=== PATIENT | female | born 1945 | race Caucasian/White ===

== ENCOUNTER → 2017-11-02 08:44 | Outpatient (CLI) | payer MEDICARE, OTHER, SELFPAY ==
[2017-11-02 09:16] LABS: Add Manual Diff / Slide Review NO; Basophils Percent Auto 0.6 % (0-2); Eosinophils Percent Auto 3.6 % (2-4); Hematocrit 33.4 % (36-46); Hemoglobin 11.4 g/dL (12.0-16.0); Lymphocytes Percent Auto 24.2 % (25-40); Mean Corpuscular Hemoglobin 36.5 PG (26-34); Mean Corpuscular Volume 107.4 fL (80-100); Monocytes Percent Auto 7.6 % (3-14); Neutrophils Absolute Auto 1300 /uL (3000-5900); Platelet Count 242 X10^3/uL (150-400); Red Blood Cell Count 3.11 X10^6/uL (4.0-5.2); Red Cell Distribution Width 14.4 % (11.6-14.8)
== END ==
PROVIDERS: Visit Provider Internal Medicine Medical Oncology
DX: C50.919 Malignant neoplasm of unspecified site of unspecified female breast (principal)
CPT/HCPCS: 36415; 85025

== ENCOUNTER → 2017-12-08 17:06 | Outpatient (CLI) | payer MEDICARE, OTHER, SELFPAY ==
[2017-12-08 17:37] LABS: Add Manual Diff / Slide Review SLIDE REVIEW; Basophils Percent Auto 0.6 % (0-2); Eosinophils Percent Auto 2.3 % (2-4); Hematocrit 30.7 % (36-46); Hemoglobin 10.6 g/dL (12.0-16.0); Lymphocytes Percent Auto 20.8 % (25-40); Mean Corpuscular HGB Conc 34.6 % (30-36); Mean Corpuscular Hemoglobin 37.3 PG (26-34); Mean Corpuscular Volume 107.8 fL (80-100); Monocytes Percent Auto 8.2 % (3-14); Neutrophils Absolute Auto 2100 /uL (3000-5900); Neutrophils Percent Auto 68.1 % (50-75); Platelet Count 207 X10^3/uL (150-400); Red Blood Cell Count 2.84 X10^6/uL (4.0-5.2); Red Cell Distribution Width 14.6 % (11.6-14.8)
== END ==
PROVIDERS: Family Provider Internal Medicine Hematology & Oncology; PCP Internal Medicine Medical Oncology; Visit Provider Internal Medicine Medical Oncology
DX: C50.919 Malignant neoplasm of unspecified site of unspecified female breast (principal)
CPT/HCPCS: 36415; 85025

== ENCOUNTER → 2017-12-22 11:38 | Outpatient (CLI) | payer MEDICARE, OTHER, SELFPAY ==
[2017-12-22 12:18] VITALS: BP 140/68; PULSE 73; RESP 16; TEMP 36.5; O2SAT 98
[2017-12-22 12:21] LABS: Basophils Percent Auto 0.4 % (0-2); Eosinophils Percent Auto 0.7 % (2-4); Hematocrit 31.9 % (36-46); Hemoglobin 10.9 g/dL (12.0-16.0); Lymphocytes Percent Auto 17.5 % (25-40); Mean Corpuscular Hemoglobin 36.5 PG (26-34); Mean Corpuscular Volume 107.4 fL (80-100); Monocytes Percent Auto 8.4 % (3-14); Neutrophils Absolute Auto 1700 /uL (3000-5900); Platelet Count 244 X10^3/uL (150-400); Red Blood Cell Count 2.97 X10^6/uL (4.0-5.2); Red Cell Distribution Width 14.7 % (11.6-14.8); White Blood Cell Count 2.4 X10^3/uL (4.5-11.0)
[2017-12-22 12:23] LABS: Add Manual Diff / Slide Review SLIDE REVIEW
[2017-12-22 12:26] LABS: Alanine Aminotransferase 18 IU/L (9-52); Albumin 4.3 g/dL (3.5-5.0); Albumin Globulin Ratio 1.4 (1.0-2.8); Alkaline Phosphatase 78 U/L (38-126); Aspartate Aminotransferase 29 IU/L (14-36); BUN Creatinine Ratio 22.9 (6-22); Bilirubin Total 0.3 mg/dL (0.2-1.3); Blood Urea Nitrogen 16 mg/dL (7-17); Calcium 8.9 mg/dL (8.4-10.2); Carbon Dioxide 32 mmol/L (22-32); Chloride 103 mmol/L (98-107); Estimated Glomerular Filt Rate > 60.0 mL/min (>60); Globulin 3.1 g/dL (1.7-4.1); Glucose 105 mg/dL (80-110); HEMOLYSIS < 15 (0-50); Potassium 4.1 mmol/L (3.4-5.1); Sodium 142 mmol/L (137-145); Total Protein 7.4 g/dL (6.3-8.2)
[2017-12-22] MEDS: FULVESTRANT 250 MG/5 ML SYR 500 MG IM (12:30)
[2017-12-22 12:55] LABS: Carcinoembryonic Antigen 6.2 ng/mL (0.1-3.0)
[2017-12-22 14:02] LABS: Macrocytosis 1+
--- NOTE | 2017-12-22 16:19 | PC.NURSE ---
Pt came today though not on the schedule for labs and faslodex she has a standing order for labs from Dr Aponte at [facility] Last visit with Dr Montgomery he determined that Faslodex seemed not to be working and to confer w/ [facility] re; a new med.Pt states she and Dr Aponte decided for many reasons to continue Faslodex at this time .Pt reported this though no info from [facility] was received .Called Dr Aponte's office/info faxed supporting continuing Faslodex at this time.Pt frustrated with delay .MICRO PALEONTOLOGIST ok'ed Faslodex for 2 months with oncology visit w/new provider in January .I explained to her that though she is being followed by Dr Aponte she requires periodic visits with oncologist here as well.Pt frustrated and angry with delay and I explained that it is best to make appt ahead of time knowing that orders are present,appts are made to insure a visit that will go quickly and smoothly.She came today expecting interventions to happen though proper info had not been received.She appears to understand.Told her Dr Aponte's office expected a f/u from her as well as scans had been done in October though not reviewed.These showed relatively stable disease in spite of increasing tumor markers per RN I spoke to.Dr Aponte also made recommendations regarding changing Prolia to X-geva>
[2017-12-23 17:01] LABS: Cancer Antigen 27.29 303 U/mL (< 38)
== END ==
PROVIDERS: Family Provider Internal Medicine Hematology & Oncology; PCP Internal Medicine Medical Oncology; Visit Provider Nurse Practitioner Gerontology
DX: Z51.11 Encounter for antineoplastic chemotherapy (principal); C50.919 Malignant neoplasm of unspecified site of unspecified female breast
CPT/HCPCS: 36415; 80053; 82378; 85025; 86300; 96402; J9395

== ENCOUNTER → 2018-01-05 13:34 | Outpatient (CLI) | payer MEDICARE, OTHER, SELFPAY ==
[2018-01-05 14:07] LABS: Add Manual Diff / Slide Review NO; Basophils Percent Auto 1.1 % (0-2); Eosinophils Percent Auto 2.5 % (2-4); Hematocrit 30.4 % (36-46); Hemoglobin 10.2 g/dL (12.0-16.0); Lymphocytes Percent Auto 24.4 % (25-40); Mean Corpuscular HGB Conc 33.6 % (30-36); Mean Corpuscular Hemoglobin 36.4 PG (26-34); Mean Corpuscular Volume 108.4 fL (80-100); Monocytes Percent Auto 8.8 % (3-14); Neutrophils Absolute Auto 1500 /uL (3000-5900); Neutrophils Percent Auto 63.2 % (50-75); Platelet Count 167 X10^3/uL (150-400); Red Blood Cell Count 2.81 X10^6/uL (4.0-5.2); Red Cell Distribution Width 15.1 % (11.6-14.8); White Blood Cell Count 2.4 X10^3/uL (4.5-11.0)
== END ==
PROVIDERS: PCP Internal Medicine Medical Oncology; Visit Provider Internal Medicine Medical Oncology
DX: C50.919 Malignant neoplasm of unspecified site of unspecified female breast (principal)
CPT/HCPCS: 36415; 85025

== ENCOUNTER → 2018-02-01 14:23 | Outpatient (CLI) | payer MEDICARE, OTHER, SELFPAY ==
[2018-02-01 15:18] LABS: Add Manual Diff / Slide Review NO; Eosinophils Percent Auto 1.4 % (2-4); Hematocrit 32.7 % (36-46); Lymphocytes Percent Auto 23.8 % (25-40); Mean Corpuscular HGB Conc 33.6 % (30-36); Mean Corpuscular Hemoglobin 36.3 PG (26-34); Mean Corpuscular Volume 108.1 fL (80-100); Monocytes Percent Auto 8.6 % (3-14); Neutrophils Absolute Auto 1500 /uL (3000-5900); Neutrophils Percent Auto 65.2 % (50-75); Platelet Count 167 X10^3/uL (150-400); Red Blood Cell Count 3.02 X10^6/uL (4.0-5.2); Red Cell Distribution Width 14.6 % (11.6-14.8); White Blood Cell Count 2.4 X10^3/uL (4.5-11.0)
[2018-02-01 16:03] LABS: Macrocytosis 1+
== END ==
PROVIDERS: Family Provider Internal Medicine Hematology & Oncology; PCP Internal Medicine Medical Oncology; Visit Provider Internal Medicine Medical Oncology
DX: C50.919 Malignant neoplasm of unspecified site of unspecified female breast (principal)
CPT/HCPCS: 36415; 85025

== ENCOUNTER 2018-02-01 15:15 | Outpatient (RCR) | payer MEDICARE, OTHER, SELFPAY ==
--- NOTE | 2017-10-24 11:59 | PT.OIE ---
Current Diagnoses Lymphedema, not elsewhere classified (10/20/17) Provider Visit Care Team Role Provider Type Lina Aponte MD Primary Care Provider Non-Staff Specialty: Internal Medicine Address: [address] [place] [address], [place], [address] Email: Jeanna Steward MD Attending Provider Non-Staff Specialty: Radiation Oncology Address: [address] [place] [address], [id number] Email: Physical Therapy Initial Evaluation PT-OP-A Visit Information Start: 10/20/17 08:14 Freq: Status: Active Protocol: Document 10/20/17 08:15 SAK (Rec: 10/20/17 08:28 SAK [id number]) Out-Patient Physical Therapy Visit Information Visit Information Visit Type Initial Evaluation Visit Start Time 08:15 Visit Stop Time 09:30 Total Visit Minutes 75 Visit Number 1 Number of BALLISTICS EXPERT FORENSIC Visits 0 Evaluation Information Evaluation Date 10/20/17 PT-OP-B Current Condition Start: 10/20/17 08:14 Freq: Status: Active Protocol: Document 10/20/17 08:15 SAK (Rec: 10/20/17 08:28 SAK [id number]) Current Condition History of Current Condition Onset Date 2-3 yrs Current Complaints lymphedema right UE History of Current Condition Lumpectomy with chemo & rad 2005. 2013 right mastectomy with chemo. Reports 2-3 years ago was stung by yellowjacket on right UE, had swelling but thought it was just an allergic reaction, realizes now it was probably the start of lymphedema though swelled then went back to about normal . 2-3 months ago, doing splitting wood and doing a lot of lifting of wood thinks that may have increased the edema. No change since then. Never have worn compression sleeve. Last plane flight October 2016 . Treatment Goals Patient/Caregiver Goals Decrease learn to manage the lymphedema. Prior Functional Status Baseline Function- ADL's Independent Baseline Function- Mobility Independent Baseline Function- Gait no cane Baseline Function- Recreation/Hobbies garden, bird watching Current Functional Impairments (Reported) Functional Limitations- Other Trying to protect UE until came to PT to learn to manage it. Personal Factors Other Personal Factors That May Effect none. Therapy/Recovery PT-OP-C Subjective Start: 10/20/17 08:14 Freq: Status: Active Protocol: Document 10/20/17 08:15 SAK (Rec: 10/24/17 11:58 SAK [id number]) OP-PT Pain Assessment Comments Pain Comments denies pain PT-OP-F Manual Assessment Start: 10/20/17 08:14 Freq: Status: Active Protocol: Document 10/20/17 08:15 SAK (Rec: 10/24/17 11:58 SAK [id number]) Manual Assessments Soft Tissue Assessment Soft Tissue Mobility Assessment mild fibrosis right UE mainly upper forearm. 1 axillary cordining right axilla PT-OP-J Posture/Palpation/Skin Start: 10/20/17 08:14 Freq: Status: Active Protocol: Document 10/20/17 08:15 SAK (Rec: 10/24/17 11:59 SAK [id number]) Posture Evaluation Position Sitting Head/C-Spine Posture Forward Head T-Spine Posture Increased Kyphosis Shoulder Posture (L) Rounded (R) Rounded PT-OP-K Range of Motion Start: 10/20/17 08:14 Freq: Status: Active Protocol: Document 10/20/17 08:15 SAK (Rec: 10/24/17 11:58 SAK [id number]) Shoulder Goniometric Range of Motion Shoulder Measured in Degrees Right Testing Position Sitting Flexion 107 Abduction 88 External Rotation at 45 degrees 45 Abduction Internal Rotation Behind Back (text) T8 Left Testing Position Sitting Flexion 129 Abduction 110 External Rotation at 45 degrees 60 Abduction Internal Rotation Behind Back (text) T4 Shoulder ROM Limitations Shoulder ROM Limitations Soft Tissue Tightness PT-OP-N Lymphedema Start: 10/20/17 08:14 Freq: Status: Active Protocol: Document 10/20/17 08:15 SAK (Rec: 10/24/17 11:58 SAK [id number]) Lymphedema Measurements Upper Extremity Circumference Measurements Right Affected MCP 20.8 cm Wrist 18.6 cm 5 cm From Distal Crease 21 cm 10 cm From Distal Crease 24.5 cm 15 cm From Distal Crease 27.4 cm 20 cm From Distal Crease 29.6 cm 25 cm From Distal Crease 30.5 cm 30 cm From Distal Crease 33.1 cm 35 cm From Distal Crease 34.8 cm 40 cm From Distal Crease 34.9 cm 45 cm From Distal Crease 33.5 cm Axilla 37 cm Left Unaffected MCP 21.3 cm Wrist 19 cm 5 cm From Distal Crease 19.7 cm 10 cm From Distal Crease 22 cm 15 cm From Distal Crease 25 cm 20 cm From Distal Crease 26.7 cm 25 cm From Distal Crease 27.7 cm 30 cm From Distal Crease 29.7 cm 35 cm From Distal Crease 33.2 cm 40 cm From Distal Crease 33.6 cm 45 cm From Distal Crease 33.8 cm Axilla 37.6 cm PT-OP-Q Treatments Start: 10/20/17 08:14 Freq: Status: Active Protocol: Document 10/20/17 08:15 [facility] (Rec: 10/24/17 11:58 [facility] [id number]) Cardio Equipment Recumbent Elliptical ([employer]) Duration (Minutes) 10 Resistance 1 Other to facilitate lymphatic flow following wrapping Manual Therapy Treatment Other Other Manual Treatments Lymphedema wrapping with Artiflex and Comprilan right UE. Lymphedema Treatment Manual Lymphatic Drainage Comments initiate next session Sequential Lymphedema Exercises Comments verbal instruction and written handout given Patient Education Lymphedema Pathology with pictures Lymphedema Prevention written handout issued Lymphedema Precautions written handout issued Sequential Lymphedema Exercises written handout issued Other Remove lymphedema wrapping if circulation compromised, (ie fingers turn purple) PT-OP-T Assessment and Plan Start: 10/20/17 08:14 Freq: Status: Active Protocol: Document 10/20/17 08:15 [facility] (Rec: 10/24/17 11:58 [facility] [id number]) Physical Therapy Assessment Rehab Potential Rehabilitation Potential Good Evaluation Complexity Number of Personal Factors/Comorbidities 1-2 Number of Body Systems Impaired 3 Clinical Presentation at Evaluation Evolving Impairments Impairments Edema ROM Soft Tissue Mobility Goals Four Impairment soft tissue mobility Short Term Goal (STG) Decrease soft tissue fibrosis and axillary cording by 50% STG Duration 6 wks Intermediate Goal (LTG) Eliminate soft tissue fibrosis and axillary cording LTG Duration 12 wks Three Impairment ROM Short Term Goal (STG) Improve right shoulder ROM to WFL to facilitate lymphatic flow STG Duration 6 wks Intermediate Goal (LTG) Patient to be independent with ROM exercises for right UE LTG Duration 12 wks Two Impairment Knowledge deficit Short Term Goal (STG) Patient to be instructed in self-MLD, self-wrapping, lymphedema precautions, sequential lymphedema exercises STG Duration 6 wks Pull Over Goal (LTG) Patient to be independent with all aspects of lymphedema self-management LTG Duration 12 wks One Impairment edema Short Term Goal (STG) Decrease lymphedema to stable level with no increase or decrease more than 1 cm over the course of a week STG Duration 6 wks Pull Over Goal (LTG) Patient to be fit with appropriate compression garment(s) for lymphedema management LTG Duration 12 wks Physical Therapy Plan Frequency and Duration Frequency of Treatment 2x/Week Duration of Treatment 12 wks Plan of Care Start Date 10/20/17 Plan of Care End Date 01/20/18 Next Visit Focus/Plan Next Visit Plan Initiate MLD, review precautions, sequential lymphedema exercises, self MLD , self-wrapping Please Sign and Return: I have reviewed this Plan of Care and certify that the skilled therapy services above are required to meet the patient???s needs. Physician Signature Date Printed Name and Credentials Clinical Instructor Signature Printed Name and Credentials
--- NOTE | 2017-10-24 12:00 | PT.OPPOC ---
Current Diagnoses Lymphedema, not elsewhere classified (10/20/17) Provider Visit Care Team Role Provider Type Lina Aponte MD Primary Care Provider Non-Staff Specialty: Internal Medicine Address: [address] [place] [address], [place], [address] Email: Jeanna Steward MD Attending Provider Non-Staff Specialty: Radiation Oncology Address: [address] [place] [address], [id number] Email: Plan Of Care PT-OP-T Assessment and Plan Start: 10/20/17 08:14 Freq: Status: Active Protocol: Document 10/20/17 08:15 KEYONNA (Rec: 10/24/17 11:58 SAK [id number]) Physical Therapy Assessment Rehab Potential Rehabilitation Potential Good Evaluation Complexity Number of Personal Factors/Comorbidities 1-2 Number of Body Systems Impaired 3 Clinical Presentation at Evaluation Evolving Impairments Impairments Edema ROM Soft Tissue Mobility Goals Four Impairment soft tissue mobility Short Term Goal (STG) Decrease soft tissue fibrosis and axillary cording by 50% STG Duration 6 wks Alf Goal (LTG) Eliminate soft tissue fibrosis and axillary cording LTG Duration 12 wks Three Impairment ROM Short Term Goal (STG) Improve right shoulder ROM to WFL to facilitate lymphatic flow STG Duration 6 wks Insurance Clerk Goal (LTG) Patient to be independent with ROM exercises for right UE LTG Duration 12 wks Two Impairment Knowledge deficit Short Term Goal (STG) Patient to be instructed in self-MLD, self-wrapping, lymphedema precautions, sequential lymphedema exercises STG Duration 6 wks Insurance Clerk Goal (LTG) Patient to be independent with all aspects of lymphedema self-management LTG Duration 12 wks One Impairment edema Short Term Goal (STG) Decrease lymphedema to stable level with no increase or decrease more than 1 cm over the course of a week STG Duration 6 wks Alf Goal (LTG) Patient to be fit with appropriate compression garment(s) for lymphedema management LTG Duration 12 wks Physical Therapy Plan Frequency and Duration Frequency of Treatment 2x/Week Duration of Treatment 12 wks Plan of Care Start Date 10/20/17 Plan of Care End Date 01/20/18 Next Visit Focus/Plan Next Visit Plan Initiate MLD, review precautions, sequential lymphedema exercises, self MLD , self-wrapping Plan of Care Dates Plan of Care Start Date 10/20/17 Plan of Care End Date 01/20/18 Please Sign and Return: I have reviewed this Plan of Care and certify that the skilled therapy services above are required to meet the patient???s needs. Physician Signature Date Printed Name and Credentials Clinical Instructor Signature Printed Name and Credentials
--- NOTE | 2017-10-27 16:36 | PT.OTN ---
Current Diagnoses Lymphedema, not elsewhere classified (10/27/17) Physical Therapy Treatment Note PT-OP-A Visit Information Start: 10/20/17 08:14 Freq: Status: Active Protocol: Document 10/27/17 16:25 [facility] (Rec: 10/27/17 16:36 [facility] [id number]) Out-Patient Physical Therapy Visit Information Visit Information Visit Type Treatment Note Visit Note POC through 01/20/18 Visit Start Time 15:20 Visit Stop Time 16:25 Total Visit Minutes 65 Visit Number 07/09 Evaluation Information Evaluation Date 10/20/17 PT-OP-B Current Condition Start: 10/20/17 08:14 Freq: Status: Active Protocol: Document 10/20/17 08:15 SAK (Rec: 10/20/17 08:28 [facility] [id number]) Current Condition History of Current Condition Onset Date 2-3 yrs Current Complaints lymphedema right UE History of Current Condition Lumpectomy with chemo & rad 2005. 2013 right mastectomy with chemo. Reports 2-3 years ago was stung by yellowjacket on right UE, had swelling but thought it was just an allergic reaction, realizes now it was probably the start of lymphedema though swelled then went back to about normal . 2-3 months ago, doing splitting wood and doing a lot of lifting of wood thinks that may have increased the edema. No change since then. Never have worn compression sleeve. Last plane flight October 2016 . Treatment Goals Patient/Caregiver Goals Decrease learn to manage the lymphedema. Prior Functional Status Baseline Function- ADL's Independent Baseline Function- Mobility Independent Baseline Function- Gait no cane Baseline Function- Recreation/Hobbies garden, bird watching Current Functional Impairments (Reported) Functional Limitations- Other Trying to protect UE until came to PT to learn to manage it. Personal Factors Other Personal Factors That May Effect none. Therapy/Recovery PT-OP-C Subjective Start: 10/20/17 08:14 Freq: Status: Active Protocol: Document 10/27/17 16:25 [facility] (Rec: 10/27/17 16:36 [facility] [id number]) OP-PT Subjective Patient Comments Patient Comments Patient reports she has been wrapping with assist of her partner but needs further review for better technique. Had swelling of hand after initial wrapping, but none since then after discussion with this PT by phone. States she thinks her arm may be a little smaller. PT-OP-F Manual Assessment Start: 10/20/17 08:14 Freq: Status: Active Protocol: Document 10/20/17 08:15 SAK (Rec: 10/24/17 11:58 SAK [id number]) Manual Assessments Soft Tissue Assessment Soft Tissue Mobility Assessment mild fibrosis right UE mainly upper forearm. 1 axillary cordining right axilla PT-OP-J Posture/Palpation/Skin Start: 10/20/17 08:14 Freq: Status: Active Protocol: Document 10/20/17 08:15 SAK (Rec: 10/24/17 11:59 SAK [id number]) Posture Evaluation Position Sitting Head/C-Spine Posture Forward Head T-Spine Posture Increased Kyphosis Shoulder Posture (L) Rounded (R) Rounded PT-OP-K Range of Motion Start: 10/20/17 08:14 Freq: Status: Active Protocol: Document 10/20/17 08:15 SAK (Rec: 10/24/17 11:58 SAK [id number]) Shoulder Goniometric Range of Motion Shoulder Measured in Degrees Right Testing Position Sitting Flexion 107 Abduction 88 External Rotation at 45 degrees 45 Abduction Internal Rotation Behind Back (text) T8 Left Testing Position Sitting Flexion 129 Abduction 110 External Rotation at 45 degrees 60 Abduction Internal Rotation Behind Back (text) T4 Shoulder ROM Limitations Shoulder ROM Limitations Soft Tissue Tightness PT-OP-N Lymphedema Start: 10/20/17 08:14 Freq: Status: Active Protocol: Document 10/20/17 08:15 SAK (Rec: 10/24/17 11:58 SAK [id number]) Lymphedema Measurements Upper Extremity Circumference Measurements Right Affected MCP 20.8 cm Wrist 18.6 cm 5 cm From Distal Crease 21 cm 10 cm From Distal Crease 24.5 cm 15 cm From Distal Crease 27.4 cm 20 cm From Distal Crease 29.6 cm 25 cm From Distal Crease 30.5 cm 30 cm From Distal Crease 33.1 cm 35 cm From Distal Crease 34.8 cm 40 cm From Distal Crease 34.9 cm 45 cm From Distal Crease 33.5 cm Axilla 37 cm Left Unaffected MCP 21.3 cm Wrist 19 cm 5 cm From Distal Crease 19.7 cm 10 cm From Distal Crease 22 cm 15 cm From Distal Crease 25 cm 20 cm From Distal Crease 26.7 cm 25 cm From Distal Crease 27.7 cm 30 cm From Distal Crease 29.7 cm 35 cm From Distal Crease 33.2 cm 40 cm From Distal Crease 33.6 cm 45 cm From Distal Crease 33.8 cm Axilla 37.6 cm PT-OP-Q Treatments Start: 10/20/17 08:14 Freq: Status: Active Protocol: Document 10/27/17 16:25 [facility] (Rec: 10/27/17 16:36 [facility] [id number]) Cardio Equipment Recumbent Elliptical ([employer]) Duration (Minutes) 7 Resistance 1 Other to facilitate lymphatic flow following wrapping Therapeutic Exercises Sidelying Exercises 1 Sidelying Exercise Name reach and roll Reps/Minutes 5x each side Manual Therapy Treatment Other Other Manual Treatments Cetaphil lotion applied to right UE Lymphedema Treatment Manual Lymphatic Drainage Location right UE Duration 35 Comments hooklying and sidelying Lymphedema Wrapping Body Location right UE Materials Artiflex and Comprilan, extra layer in elbow crease due to mild reddening/irritation PT-OP-T Assessment and Plan Start: 10/20/17 08:14 Freq: Status: Active Protocol: Document 10/27/17 16:25 [facility] (Rec: 10/27/17 16:36 [facility] [id number]) Physical Therapy Assessment Progress Towards Goals Progress Towards Goals Progressing Toward Goals Assessment Summary Assessment Patient measurements decreased right UE, compliant to HEP. Physical Therapy Plan Frequency and Duration Frequency of Treatment 2x/Week Duration of Treatment 12 wks Plan of Care Start Date 10/20/17 Plan of Care End Date 01/20/18 Next Visit Focus/Plan Next Note Type Treatment Note Next Visit Plan Continue PT per POC for lymphedema management. Give written handout for reach and roll exercise and written information about compression sleeves for patient to explore online. Please Sign and Return: I have reviewed this Plan of Care and certify that the skilled therapy services above are required to meet the patient?s needs. Physician Signature Date Printed Name and Credentials Clinical Instructor Signature Printed Name and Credentials
--- NOTE | 2017-11-02 12:17 | PT.OTN ---
Current Diagnoses Lymphedema, not elsewhere classified (11/02/17) Physical Therapy Treatment Note PT-OP-A Visit Information Start: 10/20/17 08:14 Freq: Status: Active Protocol: Document 11/02/17 09:45 GGD (Rec: 11/02/17 12:17 GGD [id number]) Out-Patient Physical Therapy Visit Information Visit Information Visit Type Treatment Note Visit Note POC through 01/20/18 Visit Start Time 09:45 Visit Stop Time 11:10 Total Visit Minutes 85 Visit Number 08/06 Evaluation Information Evaluation Date 10/20/17 PT-OP-B Current Condition Start: 10/20/17 08:14 Freq: Status: Active Protocol: Document 10/20/17 08:15 SAK (Rec: 10/20/17 08:28 SAK [id number]) Current Condition History of Current Condition Onset Date 2-3 yrs Current Complaints lymphedema right UE History of Current Condition Lumpectomy with chemo & rad 2005. 2013 right mastectomy with chemo. Reports 2-3 years ago was stung by yellowjacket on right UE, had swelling but thought it was just an allergic reaction, realizes now it was probably the start of lymphedema though swelled then went back to about normal . 2-3 months ago, doing splitting wood and doing a lot of lifting of wood thinks that may have increased the edema. No change since then. Never have worn compression sleeve. Last plane flight October 2016 . Treatment Goals Patient/Caregiver Goals Decrease learn to manage the lymphedema. Prior Functional Status Baseline Function- ADL's Independent Baseline Function- Mobility Independent Baseline Function- Gait no cane Baseline Function- Recreation/Hobbies garden, bird watching Current Functional Impairments (Reported) Functional Limitations- Other Trying to protect UE until came to PT to learn to manage it. Personal Factors Other Personal Factors That May Effect none. Therapy/Recovery PT-OP-C Subjective Start: 10/20/17 08:14 Freq: Status: Active Protocol: Document 11/02/17 09:45 GGD (Rec: 11/02/17 12:17 GGD [email or web address]) OP-PT Subjective Patient Comments Patient Comments Pt states swelling has been better. She still having trouble wrapping, due to time. PT-OP-Q Treatments Start: 10/20/17 08:14 Freq: Status: Active Protocol: Document 11/02/17 09:45 GGD (Rec: 11/02/17 12:17 GGD [id number]) Cardio Equipment Recumbent Elliptical ([employer]) Duration (Minutes) 8 Resistance 1 Other to facilitate lymphatic flow following wrapping Therapeutic Exercises Sidelying Exercises 1 Sidelying Exercise Name reach and roll Side bilateral Reps/Minutes 5x each side Manual Therapy Treatment Soft Tissue Mobilization 1 Body Location pec Mobilization Type Myofascial Release Intensity/Depth Superficial Body Position Supine Manual Techniques 2 Type Shoulder flexion ROM Body Location right Body Position Supine Reps/Duration 10 1 Type Pec str Body Location right Body Position Supine Reps/Duration 4 Lymphedema Treatment Manual Lymphatic Drainage Location right UE Duration 35 Comments hooklying and sidelying Lymphedema Wrapping Body Location right UE Materials Artiflex and Comprilan, extra layer in elbow crease due to mild reddening/irritation PT-OP-T Assessment and Plan Start: 10/20/17 08:14 Freq: Status: Active Protocol: Document 11/02/17 09:45 GGD (Rec: 11/02/17 12:17 GGD [id number]) Physical Therapy Assessment Assessment Summary Assessment PT improving tolerance to wrapping. She need cues for self wrapping. Physical Therapy Plan Frequency and Duration Frequency of Treatment 2x/Week Duration of Treatment 12 wks Plan of Care Start Date 10/20/17 Plan of Care End Date 01/20/18 Next Visit Focus/Plan Next Note Type Treatment Note Next Visit Plan Continue PT per POC for lymphedema management. Give written handout for written information about compression sleeves for patient to explore online.
--- NOTE | 2017-11-16 14:07 | PT.OTN ---
Current Diagnoses Lymphedema, not elsewhere classified (11/16/17) Physical Therapy Treatment Note PT-OP-A Visit Information Start: 10/20/17 08:14 Freq: Status: Active Protocol: Document 11/16/17 11:15 GGD (Rec: 11/16/17 14:07 GGD [email or web address]) Out-Patient Physical Therapy Visit Information Visit Information Visit Type Treatment Note Visit Note POC through 01/20/18 Visit Start Time 11:15 Visit Stop Time 12:35 Total Visit Minutes 80 Visit Number 4/10 Number of COMBINATION BUILDING INSPECTOR Visits 2 Evaluation Information Evaluation Date 10/20/17 PT-OP-B Current Condition Start: 10/20/17 08:14 Freq: Status: Active Protocol: Document 10/20/17 08:15 SAK (Rec: 10/20/17 08:28 SAK [id number]) Current Condition History of Current Condition Onset Date 2-3 yrs Current Complaints lymphedema right UE History of Current Condition Lumpectomy with chemo & rad 2005. 2013 right mastectomy with chemo. Reports 2-3 years ago was stung by yellowjacket on right UE, had swelling but thought it was just an allergic reaction, realizes now it was probably the start of lymphedema though swelled then went back to about normal . 2-3 months ago, doing splitting wood and doing a lot of lifting of wood thinks that may have increased the edema. No change since then. Never have worn compression sleeve. Last plane flight October 2016 . Treatment Goals Patient/Caregiver Goals Decrease learn to manage the lymphedema. Prior Functional Status Baseline Function- ADL's Independent Baseline Function- Mobility Independent Baseline Function- Gait no cane Baseline Function- Recreation/Hobbies garden, bird watching Current Functional Impairments (Reported) Functional Limitations- Other Trying to protect UE until came to PT to learn to manage it. Personal Factors Other Personal Factors That May Effect none. Therapy/Recovery PT-OP-C Subjective Start: 10/20/17 08:14 Freq: Status: Active Protocol: Document 11/16/17 11:15 GGD (Rec: 11/16/17 14:07 GGD [email or web address]) OP-PT Subjective Patient Comments Patient Comments Pt worried swelling is worst without PT. PT-OP-F Manual Assessment Start: 10/20/17 08:14 Freq: Status: Active Protocol: Document 10/20/17 08:15 SAK (Rec: 10/24/17 11:58 SAK [id number]) Manual Assessments Soft Tissue Assessment Soft Tissue Mobility Assessment mild fibrosis right UE mainly upper forearm. 1 axillary cordining right axilla PT-OP-J Posture/Palpation/Skin Start: 10/20/17 08:14 Freq: Status: Active Protocol: Document 10/20/17 08:15 SAK (Rec: 10/24/17 11:59 SAK [id number]) Posture Evaluation Position Sitting Head/C-Spine Posture Forward Head T-Spine Posture Increased Kyphosis Shoulder Posture (L) Rounded (R) Rounded PT-OP-K Range of Motion Start: 10/20/17 08:14 Freq: Status: Active Protocol: Document 10/20/17 08:15 SAK (Rec: 10/24/17 11:58 SAK [id number]) Shoulder Goniometric Range of Motion Shoulder Measured in Degrees Right Testing Position Sitting Flexion 107 Abduction 88 External Rotation at 45 degrees 45 Abduction Internal Rotation Behind Back (text) T8 Left Testing Position Sitting Flexion 129 Abduction 110 External Rotation at 45 degrees 60 Abduction Internal Rotation Behind Back (text) T4 Shoulder ROM Limitations Shoulder ROM Limitations Soft Tissue Tightness PT-OP-N Lymphedema Start: 10/20/17 08:14 Freq: Status: Active Protocol: Document 11/16/17 11:15 GGD (Rec: 11/16/17 14:07 GGD [email or web address]) Lymphedema Measurements Upper Extremity Circumference Measurements Right Affected MCP 19.9 cm Wrist 16.7 cm 5 cm From Distal Crease 19.7 cm 10 cm From Distal Crease 23.8 cm 15 cm From Distal Crease 27.2 cm 20 cm From Distal Crease 29.5 cm 25 cm From Distal Crease 28.6 cm 30 cm From Distal Crease 29.4 cm 35 cm From Distal Crease 33.2 cm 40 cm From Distal Crease 35 cm 45 cm From Distal Crease 33.6 cm PT-OP-Q Treatments Start: 10/20/17 08:14 Freq: Status: Active Protocol: Document 11/16/17 11:15 GGD (Rec: 11/16/17 14:07 GGD [email or web address]) Cardio Equipment Recumbent Elliptical ([employer]) Duration (Minutes) 10 Resistance 2 Other to facilitate lymphatic flow following wrapping Therapeutic Exercises Sidelying Exercises 1 Sidelying Exercise Name reach and roll Side bilateral Reps/Minutes 5x each side Manual Therapy Treatment Soft Tissue Mobilization 1 Body Location pec Mobilization Type Myofascial Release Intensity/Depth Superficial Body Position Supine Manual Techniques 2 Type Shoulder flexion ROM Body Location right Body Position Supine Reps/Duration 10 1 Type Pec str Body Location right Body Position Supine Reps/Duration 4 Lymphedema Treatment Manual Lymphatic Drainage Location right UE Duration 35 Comments hooklying and sidelying Lymphedema Wrapping Body Location right UE Materials Artiflex and Comprilan, extra layer in elbow crease due to mild reddening/irritation PT-OP-T Assessment and Plan Start: 10/20/17 08:14 Freq: Status: Active Protocol: Document 11/16/17 11:15 GGD (Rec: 11/16/17 14:07 GGD [email or web address]) Physical Therapy Assessment Assessment Summary Assessment PT had decrease in swelling in distal UE. Physical Therapy Plan Frequency and Duration Frequency of Treatment 2x/Week Duration of Treatment 12 wks Plan of Care Start Date 10/20/17 Plan of Care End Date 01/20/18 Next Visit Focus/Plan Next Note Type Treatment Note Next Visit Plan Continue PT per POC for lymphedema management.
--- NOTE | 2017-11-23 17:20 | PT.OTN ---
Current Diagnoses Lymphedema, not elsewhere classified (11/23/17) Physical Therapy Treatment Note PT-OP-A Visit Information Start: 10/20/17 08:14 Freq: Status: Active Protocol: Document 11/23/17 17:09 GGD (Rec: 11/23/17 17:20 GGD [email or web address]) Out-Patient Physical Therapy Visit Information Visit Information Visit Type Treatment Note Visit Note POC through 01/20/18 Visit Start Time 15:55 Visit Stop Time 17:05 Total Visit Minutes 70 Visit Number 5/10 Number of IDENTIFICATION PRINTING MACHINE SETTER Visits 3 Evaluation Information Evaluation Date 10/20/17 PT-OP-B Current Condition Start: 10/20/17 08:14 Freq: Status: Active Protocol: Document 10/20/17 08:15 SAK (Rec: 10/20/17 08:28 SAK [id number]) Current Condition History of Current Condition Onset Date 2-3 yrs Current Complaints lymphedema right UE History of Current Condition Lumpectomy with chemo & rad 2005. 2013 right mastectomy with chemo. Reports 2-3 years ago was stung by yellowjacket on right UE, had swelling but thought it was just an allergic reaction, realizes now it was probably the start of lymphedema though swelled then went back to about normal . 2-3 months ago, doing splitting wood and doing a lot of lifting of wood thinks that may have increased the edema. No change since then. Never have worn compression sleeve. Last plane flight October 2016 . Treatment Goals Patient/Caregiver Goals Decrease learn to manage the lymphedema. Prior Functional Status Baseline Function- ADL's Independent Baseline Function- Mobility Independent Baseline Function- Gait no cane Baseline Function- Recreation/Hobbies garden, bird watching Current Functional Impairments (Reported) Functional Limitations- Other Trying to protect UE until came to PT to learn to manage it. Personal Factors Other Personal Factors That May Effect none. Therapy/Recovery PT-OP-C Subjective Start: 10/20/17 08:14 Freq: Status: Active Protocol: Document 11/23/17 17:09 GGD (Rec: 11/23/17 17:20 GGD [email or web address]) OP-PT Subjective Patient Comments Patient Comments Pt states she been needing to re-wrap in the afternoon. PT-OP-F Manual Assessment Start: 10/20/17 08:14 Freq: Status: Active Protocol: Document 10/20/17 08:15 SAK (Rec: 10/24/17 11:58 [facility] [id number]) Manual Assessments Soft Tissue Assessment Soft Tissue Mobility Assessment mild fibrosis right UE mainly upper forearm. 1 axillary cordining right axilla PT-OP-J Posture/Palpation/Skin Start: 10/20/17 08:14 Freq: Status: Active Protocol: Document 10/20/17 08:15 SAK (Rec: 10/24/17 11:59 SAK [id number]) Posture Evaluation Position Sitting Head/C-Spine Posture Forward Head T-Spine Posture Increased Kyphosis Shoulder Posture (L) Rounded (R) Rounded PT-OP-K Range of Motion Start: 10/20/17 08:14 Freq: Status: Active Protocol: Document 10/20/17 08:15 SAK (Rec: 10/24/17 11:58 [facility] [id number]) Shoulder Goniometric Range of Motion Shoulder Measured in Degrees Right Testing Position Sitting Flexion 107 Abduction 88 External Rotation at 45 degrees 45 Abduction Internal Rotation Behind Back (text) T8 Left Testing Position Sitting Flexion 129 Abduction 110 External Rotation at 45 degrees 60 Abduction Internal Rotation Behind Back (text) T4 Shoulder ROM Limitations Shoulder ROM Limitations Soft Tissue Tightness PT-OP-N Lymphedema Start: 10/20/17 08:14 Freq: Status: Active Protocol: Document 11/23/17 17:09 GGD (Rec: 11/23/17 17:20 GGD [email or web address]) Lymphedema Measurements Upper Extremity Circumference Measurements Right Affected MCP 18.9 cm Wrist 16.7 cm 5 cm From Distal Crease 18.9 cm 10 cm From Distal Crease 23.1 cm 15 cm From Distal Crease 26.3 cm 20 cm From Distal Crease 27.6 cm 25 cm From Distal Crease 28.3 cm 30 cm From Distal Crease 29.2 cm 35 cm From Distal Crease 32.6 cm 40 cm From Distal Crease 34.1 cm 45 cm From Distal Crease 33.2 cm PT-OP-Q Treatments Start: 10/20/17 08:14 Freq: Status: Active Protocol: Document 11/23/17 17:09 GGD (Rec: 11/23/17 17:20 GGD [email or web address]) Cardio Equipment Recumbent Elliptical ([employer]) Duration (Minutes) 10 Resistance 2 Other to facilitate lymphatic flow following wrapping Manual Therapy Treatment Soft Tissue Mobilization 1 Body Location pec Mobilization Type Myofascial Release Intensity/Depth Superficial Body Position Supine Manual Techniques 2 Type Shoulder flexion ROM Body Location right Body Position Supine Reps/Duration 10 1 Type Pec str Body Location right Body Position Supine Reps/Duration 4 Lymphedema Treatment Manual Lymphatic Drainage Location right UE Duration 35 Comments hooklying and sidelying Lymphedema Wrapping Body Location right UE Materials Artiflex and Comprilan, extra layer in elbow crease due to mild reddening/irritation PT-OP-T Assessment and Plan Start: 10/20/17 08:14 Freq: Status: Active Protocol: Document 11/23/17 17:09 GGD (Rec: 11/23/17 17:20 GGD [email or web address]) Physical Therapy Assessment Rehab Potential Rehabilitation Potential Good Evaluation Complexity Number of Personal Factors/Comorbidities 1-2 Number of Body Systems Impaired 3 Clinical Presentation at Evaluation Evolving Impairments Impairments Edema ROM Soft Tissue Mobility Goals Four Impairment soft tissue mobility Short Term Goal (STG) Decrease soft tissue fibrosis and axillary cording by 50% STG Duration [address] Flusher Driver Goal (LTG) Eliminate soft tissue fibrosis and axillary cording LTG Duration 12 wks Three Impairment ROM Short Term Goal (STG) Improve right shoulder ROM to WFL to facilitate lymphatic flow STG Duration 6 wks Detention Goal (LTG) Patient to be independent with ROM exercises for right UE LTG Duration 12 wks Two Impairment Knowledge deficit Short Term Goal (STG) Patient to be instructed in self-MLD, self-wrapping, lymphedema precautions, sequential lymphedema exercises STG Duration [address] Flusher Driver Goal (LTG) Patient to be independent with all aspects of lymphedema self-management LTG Duration 12 wks One Impairment edema Short Term Goal (STG) Decrease lymphedema to stable level with no increase or decrease more than 1 cm over the course of a week STG Duration [address] Flusher Driver Goal (LTG) Patient to be fit with appropriate compression garment(s) for lymphedema management LTG Duration 12 wks Assessment Summary Assessment Pt had decrease in edema on distal UE by .5 cm. and proximal by .3 cm. Physical Therapy Plan Frequency and Duration Frequency of Treatment 2x/Week Duration of Treatment 12 wks Plan of Care Start Date 10/20/17 Plan of Care End Date 01/20/18 Next Visit Focus/Plan Next Note Type Treatment Note Next Visit Plan Continue PT per POC for lymphedema management.
--- NOTE | 2017-12-01 12:01 | PT.OTN ---
Current Diagnoses Lymphedema, not elsewhere classified (12/01/17) Physical Therapy Treatment Note PT-OP-A Visit Information Start: 10/20/17 08:14 Freq: Status: Active Protocol: Document 12/01/17 11:47 GGD (Rec: 12/01/17 12:01 GGD [email or web address]) Out-Patient Physical Therapy Visit Information Visit Information Visit Type Treatment Note Visit Note POC through 01/20/18 Visit Start Time 11:00 Visit Stop Time 12:00 Total Visit Minutes 60 Visit Number 6/10 Number of DINING ROOM HOST Visits 4 PT-OP-B Current Condition Start: 10/20/17 08:14 Freq: Status: Active Protocol: Document 10/20/17 08:15 SAK (Rec: 10/20/17 08:28 SAK [id number]) Current Condition History of Current Condition Onset Date 2-3 yrs Current Complaints lymphedema right UE History of Current Condition Lumpectomy with chemo & rad 2005. 2013 right mastectomy with chemo. Reports 2-3 years ago was stung by yellowjacket on right UE, had swelling but thought it was just an allergic reaction, realizes now it was probably the start of lymphedema though swelled then went back to about normal . 2-3 months ago, doing splitting wood and doing a lot of lifting of wood thinks that may have increased the edema. No change since then. Never have worn compression sleeve. Last plane flight October 2016 . Treatment Goals Patient/Caregiver Goals Decrease learn to manage the lymphedema. Prior Functional Status Baseline Function- ADL's Independent Baseline Function- Mobility Independent Baseline Function- Gait no cane Baseline Function- Recreation/Hobbies garden, bird watching Current Functional Impairments (Reported) Functional Limitations- Other Trying to protect UE until came to PT to learn to manage it. Personal Factors Other Personal Factors That May Effect none. Therapy/Recovery PT-OP-C Subjective Start: 10/20/17 08:14 Freq: Status: Active Protocol: Document 12/01/17 11:47 GGD (Rec: 12/01/17 12:01 GGD [email or web address]) OP-PT Subjective Patient Comments Patient Comments Pt states she been doing more and not sure if it's more swollen. PT-OP-F Manual Assessment Start: 10/20/17 08:14 Freq: Status: Active Protocol: Document 10/20/17 08:15 SAK (Rec: 10/24/17 11:58 SAK [id number]) Manual Assessments Soft Tissue Assessment Soft Tissue Mobility Assessment mild fibrosis right UE mainly upper forearm. 1 axillary cordining right axilla PT-OP-J Posture/Palpation/Skin Start: 10/20/17 08:14 Freq: Status: Active Protocol: Document 10/20/17 08:15 SAK (Rec: 10/24/17 11:59 SAK [id number]) Posture Evaluation Position Sitting Head/C-Spine Posture Forward Head T-Spine Posture Increased Kyphosis Shoulder Posture (L) Rounded (R) Rounded PT-OP-K Range of Motion Start: 10/20/17 08:14 Freq: Status: Active Protocol: Document 10/20/17 08:15 SAK (Rec: 10/24/17 11:58 SAK [id number]) Shoulder Goniometric Range of Motion Shoulder Measured in Degrees Right Testing Position Sitting Flexion 107 Abduction 88 External Rotation at 45 degrees 45 Abduction Internal Rotation Behind Back (text) T8 Left Testing Position Sitting Flexion 129 Abduction 110 External Rotation at 45 degrees 60 Abduction Internal Rotation Behind Back (text) T4 Shoulder ROM Limitations Shoulder ROM Limitations Soft Tissue Tightness PT-OP-N Lymphedema Start: 10/20/17 08:14 Freq: Status: Active Protocol: Document 12/01/17 11:47 GGD (Rec: 12/01/17 12:01 GGD [email or web address]) Lymphedema Measurements Upper Extremity Circumference Measurements Right Affected MCP 19.2 cm Wrist 16.7 cm 5 cm From Distal Crease 19 cm 10 cm From Distal Crease 23 cm 15 cm From Distal Crease 26.2 cm 20 cm From Distal Crease 27.4 cm 25 cm From Distal Crease 27.7 cm 30 cm From Distal Crease 30 cm 35 cm From Distal Crease 32.1 cm 40 cm From Distal Crease 34.3 cm 45 cm From Distal Crease 34 cm PT-OP-Q Treatments Start: 10/20/17 08:14 Freq: Status: Active Protocol: Document 12/01/17 11:47 GGD (Rec: 12/01/17 12:01 GGD [email or web address]) Cardio Equipment Recumbent Elliptical ([employer]) Duration (Minutes) 10 Resistance 2 Other to facilitate lymphatic flow following wrapping Lymphedema Treatment Manual Lymphatic Drainage Location right UE Duration 35 Comments hooklying and sidelying Lymphedema Wrapping Body Location right UE Materials Artiflex and Comprilan, extra layer in elbow crease due to mild reddening/irritation Compression Garment Assessment Compression Garment Assessment Details Measure and handout given for ordering compression sleeve. PT-OP-T Assessment and Plan Start: 10/20/17 08:14 Freq: Status: Active Protocol: Document 12/01/17 11:47 GGD (Rec: 12/01/17 12:01 GGD [email or web address]) Physical Therapy Assessment Assessment Summary Assessment Pt selling is stabilizing Physical Therapy Plan Frequency and Duration Frequency of Treatment 2x/Week Duration of Treatment 12 wks Plan of Care Start Date 10/20/17 Plan of Care End Date 01/20/18 Next Visit Focus/Plan Next Note Type Treatment Note Next Visit Plan Continue PT per POC for lymphedema management until sleeve.
--- NOTE | 2017-12-08 17:21 | PT.OTN ---
Current Diagnoses Lymphedema, not elsewhere classified (12/08/17) Physical Therapy Treatment Note PT-OP-A Visit Information Start: 10/20/17 08:14 Freq: Status: Active Protocol: Document 12/08/17 17:05 GGD (Rec: 12/08/17 17:20 GGD [email or web address]) Out-Patient Physical Therapy Visit Information Visit Information Visit Type Treatment Note Visit Note POC through 01/20/18 Visit Start Time 16:00 Visit Stop Time 17:05 Total Visit Minutes 65 Visit Number 7/10 Number of SENIOR POWER PLANT OPERATOR Visits 5 Evaluation Information Evaluation Date 10/20/17 PT-OP-B Current Condition Start: 10/20/17 08:14 Freq: Status: Active Protocol: Document 10/20/17 08:15 SAK (Rec: 10/20/17 08:28 SAK [id number]) Current Condition History of Current Condition Onset Date 2-3 yrs Current Complaints lymphedema right UE History of Current Condition Lumpectomy with chemo & rad 2005. 2013 right mastectomy with chemo. Reports 2-3 years ago was stung by yellowjacket on right UE, had swelling but thought it was just an allergic reaction, realizes now it was probably the start of lymphedema though swelled then went back to about normal . 2-3 months ago, doing splitting wood and doing a lot of lifting of wood thinks that may have increased the edema. No change since then. Never have worn compression sleeve. Last plane flight October 2016 . Treatment Goals Patient/Caregiver Goals Decrease learn to manage the lymphedema. Prior Functional Status Baseline Function- ADL's Independent Baseline Function- Mobility Independent Baseline Function- Gait no cane Baseline Function- Recreation/Hobbies garden, bird watching Current Functional Impairments (Reported) Functional Limitations- Other Trying to protect UE until came to PT to learn to manage it. Personal Factors Other Personal Factors That May Effect none. Therapy/Recovery PT-OP-C Subjective Start: 10/20/17 08:14 Freq: Status: Active Protocol: Document 12/08/17 17:05 GGD (Rec: 12/08/17 17:17 GGD [email or web address]) OP-PT Subjective Patient Comments Patient Comments Pt states that she still feels swelling improving. PT-OP-F Manual Assessment Start: 10/20/17 08:14 Freq: Status: Active Protocol: Document 10/20/17 08:15 SAK (Rec: 10/24/17 11:58 SAK [id number]) Manual Assessments Soft Tissue Assessment Soft Tissue Mobility Assessment mild fibrosis right UE mainly upper forearm. 1 axillary cordining right axilla PT-OP-J Posture/Palpation/Skin Start: 10/20/17 08:14 Freq: Status: Active Protocol: Document 10/20/17 08:15 SAK (Rec: 10/24/17 11:59 SAK [id number]) Posture Evaluation Position Sitting Head/C-Spine Posture Forward Head T-Spine Posture Increased Kyphosis Shoulder Posture (L) Rounded (R) Rounded PT-OP-K Range of Motion Start: 10/20/17 08:14 Freq: Status: Active Protocol: Document 10/20/17 08:15 SAK (Rec: 10/24/17 11:58 SAK [id number]) Shoulder Goniometric Range of Motion Shoulder Measured in Degrees Right Testing Position Sitting Flexion 107 Abduction 88 External Rotation at 45 degrees 45 Abduction Internal Rotation Behind Back (text) T8 Left Testing Position Sitting Flexion 129 Abduction 110 External Rotation at 45 degrees 60 Abduction Internal Rotation Behind Back (text) T4 Shoulder ROM Limitations Shoulder ROM Limitations Soft Tissue Tightness PT-OP-N Lymphedema Start: 10/20/17 08:14 Freq: Status: Active Protocol: Document 12/08/17 17:05 GGD (Rec: 12/08/17 17:17 GGD [email or web address]) Lymphedema Measurements Upper Extremity Circumference Measurements Right Affected MCP 19.2 cm Wrist 16.5 cm 5 cm From Distal Crease 19.2 cm 10 cm From Distal Crease 22 cm 15 cm From Distal Crease 25.6 cm 20 cm From Distal Crease 27.6 cm 25 cm From Distal Crease 27.8 cm 30 cm From Distal Crease 30 cm 35 cm From Distal Crease 31.6 cm 40 cm From Distal Crease 33.4 cm 45 cm From Distal Crease 33.7 cm PT-OP-Q Treatments Start: 10/20/17 08:14 Freq: Status: Active Protocol: Document 12/08/17 17:05 GGD (Rec: 12/08/17 17:17 GGD [email or web address]) Manual Therapy Treatment Soft Tissue Mobilization 1 Body Location pec Mobilization Type Myofascial Release Intensity/Depth Superficial Body Position Supine Manual Techniques 1 Type Pec str Body Location right Body Position Supine Reps/Duration 4 Lymphedema Treatment Manual Lymphatic Drainage Location right UE Duration 35 Comments hooklying and sidelying Lymphedema Wrapping Body Location right UE Materials Artiflex and Comprilan, extra layer in elbow crease due to mild reddening/irritation Compression Garment Assessment Compression Garment Assessment Details Measure and handout given for ordering compression sleeve. PT-OP-T Assessment and Plan Start: 10/20/17 08:14 Freq: Status: Active Protocol: Document 12/08/17 17:05 GGD (Rec: 12/08/17 17:17 GGD [email or web address]) Physical Therapy Assessment Assessment Summary Assessment Pt had mild decrease in swelling. She improving with shoulder ROM. Still restricted in axillary cording. Physical Therapy Plan Frequency and Duration Frequency of Treatment 2x/Week Duration of Treatment 12 wks Plan of Care Start Date 10/20/17 Plan of Care End Date 01/20/18 Next Visit Focus/Plan Next Note Type Treatment Note Next Visit Plan Continue PT per POC for lymphedema management until sleeve.
--- NOTE | 2018-01-22 16:22 | PT.OTN ---
Current Diagnoses Malignant neoplasm of unspecified site of unspecified female breast (01/19/18) Lymphedema, not elsewhere classified (01/19/18) Physical Therapy Treatment Note PT-OP-A Visit Information Start: 10/20/17 08:14 Freq: Status: Active Protocol: Document 01/19/18 11:14 SAK (Rec: 01/19/18 12:09 SAK [id number]) Out-Patient Physical Therapy Visit Information Visit Information Visit Type Re-Evaluation Visit Start Time 11:14 Visit Stop Time 12:06 Total Visit Minutes 55 Visit Number 8/10 Number of TRAVELING PHLEBOTOMIST Visits 0 Evaluation Information Evaluation Date 10/20/17 PT-OP-B Current Condition Start: 10/20/17 08:14 Freq: Status: Active Protocol: Document 10/20/17 08:15 SAK (Rec: 10/20/17 08:28 SAK [id number]) Current Condition History of Current Condition Onset Date 2-3 yrs Current Complaints lymphedema right UE History of Current Condition Lumpectomy with chemo & rad 2005. 2013 right mastectomy with chemo. Reports 2-3 years ago was stung by yellowjacket on right UE, had swelling but thought it was just an allergic reaction, realizes now it was probably the start of lymphedema though swelled then went back to about normal . 2-3 months ago, doing splitting wood and doing a lot of lifting of wood thinks that may have increased the edema. No change since then. Never have worn compression sleeve. Last plane flight October 2016 . Treatment Goals Patient/Caregiver Goals Decrease learn to manage the lymphedema. Prior Functional Status Baseline Function- ADL's Independent Baseline Function- Mobility Independent Baseline Function- Gait no cane Baseline Function- Recreation/Hobbies garden, bird watching Current Functional Impairments (Reported) Functional Limitations- Other Trying to protect UE until came to PT to learn to manage it. Personal Factors Other Personal Factors That May Effect none. Therapy/Recovery PT-OP-C Subjective Start: 10/20/17 08:14 Freq: Status: Active Protocol: Document 12/08/17 17:05 GGD (Rec: 12/08/17 17:17 GGD [id number]) OP-PT Subjective Patient Comments Patient Comments Pt states that she still feels swelling improving. PT-OP-F Manual Assessment Start: 10/20/17 08:14 Freq: Status: Active Protocol: Document 10/20/17 08:15 SAK (Rec: 10/24/17 11:58 SAK [id number]) Manual Assessments Soft Tissue Assessment Soft Tissue Mobility Assessment mild fibrosis right UE mainly upper forearm. 1 axillary cordining right axilla PT-OP-J Posture/Palpation/Skin Start: 10/20/17 08:14 Freq: Status: Active Protocol: Document 10/20/17 08:15 SAK (Rec: 10/24/17 11:59 SAK [id number]) Posture Evaluation Position Sitting Head/C-Spine Posture Forward Head T-Spine Posture Increased Kyphosis Shoulder Posture (L) Rounded (R) Rounded PT-OP-K Range of Motion Start: 10/20/17 08:14 Freq: Status: Active Protocol: Document 10/20/17 08:15 SAK (Rec: 10/24/17 11:58 [facility] [id number]) Shoulder Goniometric Range of Motion Shoulder Measured in Degrees Right Testing Position Sitting Flexion 107 Abduction 88 External Rotation at 45 degrees 45 Abduction Internal Rotation Behind Back (text) T8 Left Testing Position Sitting Flexion 129 Abduction 110 External Rotation at 45 degrees 60 Abduction Internal Rotation Behind Back (text) T4 Shoulder ROM Limitations Shoulder ROM Limitations Soft Tissue Tightness PT-OP-N Lymphedema Start: 10/20/17 08:14 Freq: Status: Active Protocol: Document 01/22/18 16:15 SAK (Rec: 01/22/18 16:22 [facility] [id number]) Lymphedema Measurements Upper Extremity Circumference Measurements Right Affected MCP 19.2 cm Wrist 16.6 cm 5 cm From Distal Crease 18.3 cm 10 cm From Distal Crease 21.3 cm 15 cm From Distal Crease 24.5 cm 20 cm From Distal Crease 28 cm 25 cm From Distal Crease 28.4 cm 30 cm From Distal Crease 29.1 cm 35 cm From Distal Crease 31.6 cm 40 cm From Distal Crease 32.2 cm 45 cm From Distal Crease 34 cm PT-OP-Q Treatments Start: 10/20/17 08:14 Freq: Status: Active Protocol: Document 01/22/18 16:15 SAK (Rec: 01/22/18 16:22 SAK [id number]) Manual Therapy Treatment Soft Tissue Mobilization 1 Body Location pec Mobilization Type Myofascial Release Intensity/Depth Superficial Body Position Supine Other Other Manual Treatments circumferential measurements Lymphedema Treatment Manual Lymphatic Drainage Location right UE Duration 35 Comments hooklying and sidelying Lymphedema Wrapping Body Location right UE Materials Artiflex and Comprilan, extra layer in elbow crease due to mild reddening/irritation PT-OP-T Assessment and Plan Start: 10/20/17 08:14 Freq: Status: Active Protocol: Document 01/22/18 16:15 [facility] (Rec: 01/22/18 16:22 SAK [id number]) Physical Therapy Assessment Rehab Potential Rehabilitation Potential Good Evaluation Complexity Number of Personal Factors/Comorbidities 1-2 Number of Body Systems Impaired 3 Clinical Presentation at Evaluation Evolving Impairments Impairments Edema ROM Soft Tissue Mobility Goals Four Impairment soft tissue mobility Short Term Goal (STG) Decrease soft tissue fibrosis and axillary cording by 50% ( goal achieved) STG Duration 4 wks Alf Goal (LTG) Eliminate soft tissue fibrosis and axillary cording (goal progress) LTG Duration 8 wks Three Impairment ROM Short Term Goal (STG) Improve right shoulder ROM to WFL to facilitate lymphatic flow (goal progress) STG Duration 4 wks Mainspring Winder Goal (LTG) Patient to be independent with ROM exercises for right UE (goal progress) LTG Duration 8 wks Two Impairment Knowledge deficit Short Term Goal (STG) Patient to be instructed in self-MLD, self-wrapping, lymphedema precautions, sequential lymphedema exercises (goal progress STG Duration 4 wks Mainspring Winder Goal (LTG) Patient to be independent with all aspects of lymphedema self-management (goal progress ) LTG Duration 8 wks One Impairment edema Short Term Goal (STG) Decrease lymphedema to stable level with no increase or decrease more than 1 cm over the course of a week (goal achieved) STG Duration 6 wks Mainspring Winder Goal (LTG) Patient to be fit with appropriate compression garment(s) for lymphedema management (goal progress) LTG Duration 8 wks Assessment Summary Assessment Would benefit from further PT to fully achieve above goals. Has good potential and is highly motivated. Physical Therapy Plan Frequency and Duration Frequency of Treatment 2x/Week Duration of Treatment 8 wks Plan of Care Start Date 01/19/18 Plan of Care End Date 03/21/18 Next Visit Focus/Plan Next Note Type Treatment Note Next Visit Plan Continue lymphedema management , assess fit of compression garment when received.
--- NOTE | 2018-01-22 16:24 | PT.OTN ---
Current Diagnoses Malignant neoplasm of unspecified site of unspecified female breast (01/19/18) Lymphedema, not elsewhere classified (01/19/18) Physical Therapy Treatment Note PT-OP-A Visit Information Start: 10/20/17 08:14 Freq: Status: Active Protocol: Document 01/19/18 11:14 SAK (Rec: 01/19/18 12:09 SAK [id number]) Out-Patient Physical Therapy Visit Information Visit Information Visit Type Re-Evaluation Visit Start Time 11:14 Visit Stop Time 12:06 Total Visit Minutes 55 Visit Number 8/10 Number of CRANE LADLE PERSON Visits 0 Evaluation Information Evaluation Date 10/20/17 PT-OP-B Current Condition Start: 10/20/17 08:14 Freq: Status: Active Protocol: Document 10/20/17 08:15 SAK (Rec: 10/20/17 08:28 SAK [id number]) Current Condition History of Current Condition Onset Date 2-3 yrs Current Complaints lymphedema right UE History of Current Condition Lumpectomy with chemo & rad 2005. 2013 right mastectomy with chemo. Reports 2-3 years ago was stung by yellowjacket on right UE, had swelling but thought it was just an allergic reaction, realizes now it was probably the start of lymphedema though swelled then went back to about normal . 2-3 months ago, doing splitting wood and doing a lot of lifting of wood thinks that may have increased the edema. No change since then. Never have worn compression sleeve. Last plane flight October 2016 . Treatment Goals Patient/Caregiver Goals Decrease learn to manage the lymphedema. Prior Functional Status Baseline Function- ADL's Independent Baseline Function- Mobility Independent Baseline Function- Gait no cane Baseline Function- Recreation/Hobbies garden, bird watching Current Functional Impairments (Reported) Functional Limitations- Other Trying to protect UE until came to PT to learn to manage it. Personal Factors Other Personal Factors That May Effect none. Therapy/Recovery PT-OP-C Subjective Start: 10/20/17 08:14 Freq: Status: Active Protocol: Document 12/08/17 17:05 GGD (Rec: 12/08/17 17:17 GGD [id number]) OP-PT Subjective Patient Comments Patient Comments Pt states that she still feels swelling improving. PT-OP-F Manual Assessment Start: 10/20/17 08:14 Freq: Status: Active Protocol: Document 10/20/17 08:15 SAK (Rec: 10/24/17 11:58 SAK [id number]) Manual Assessments Soft Tissue Assessment Soft Tissue Mobility Assessment mild fibrosis right UE mainly upper forearm. 1 axillary cordining right axilla PT-OP-J Posture/Palpation/Skin Start: 10/20/17 08:14 Freq: Status: Active Protocol: Document 10/20/17 08:15 SAK (Rec: 10/24/17 11:59 SAK [id number]) Posture Evaluation Position Sitting Head/C-Spine Posture Forward Head T-Spine Posture Increased Kyphosis Shoulder Posture (L) Rounded (R) Rounded PT-OP-K Range of Motion Start: 10/20/17 08:14 Freq: Status: Active Protocol: Document 10/20/17 08:15 SAK (Rec: 10/24/17 11:58 [facility] [id number]) Shoulder Goniometric Range of Motion Shoulder Measured in Degrees Right Testing Position Sitting Flexion 107 Abduction 88 External Rotation at 45 degrees 45 Abduction Internal Rotation Behind Back (text) T8 Left Testing Position Sitting Flexion 129 Abduction 110 External Rotation at 45 degrees 60 Abduction Internal Rotation Behind Back (text) T4 Shoulder ROM Limitations Shoulder ROM Limitations Soft Tissue Tightness PT-OP-N Lymphedema Start: 10/20/17 08:14 Freq: Status: Active Protocol: Document 01/22/18 16:15 SAK (Rec: 01/22/18 16:22 [facility] [id number]) Lymphedema Measurements Upper Extremity Circumference Measurements Right Affected MCP 19.2 cm Wrist 16.6 cm 5 cm From Distal Crease 18.3 cm 10 cm From Distal Crease 21.3 cm 15 cm From Distal Crease 24.5 cm 20 cm From Distal Crease 28 cm 25 cm From Distal Crease 28.4 cm 30 cm From Distal Crease 29.1 cm 35 cm From Distal Crease 31.6 cm 40 cm From Distal Crease 32.2 cm 45 cm From Distal Crease 34 cm PT-OP-Q Treatments Start: 10/20/17 08:14 Freq: Status: Active Protocol: Document 01/22/18 16:15 SAK (Rec: 01/22/18 16:22 SAK [id number]) Manual Therapy Treatment Soft Tissue Mobilization 1 Body Location pec Mobilization Type Myofascial Release Intensity/Depth Superficial Body Position Supine Other Other Manual Treatments circumferential measurements Lymphedema Treatment Manual Lymphatic Drainage Location right UE Duration 35 Comments hooklying and sidelying Lymphedema Wrapping Body Location right UE Materials Artiflex and Comprilan, extra layer in elbow crease due to mild reddening/irritation PT-OP-T Assessment and Plan Start: 10/20/17 08:14 Freq: Status: Active Protocol: Document 01/19/18 11:14 [facility] (Rec: 01/22/18 16:22 [facility] [id number]) Physical Therapy Assessment Rehab Potential Rehabilitation Potential Good Evaluation Complexity Number of Personal Factors/Comorbidities 1-2 Number of Body Systems Impaired 3 Clinical Presentation at Evaluation Evolving Impairments Impairments Edema ROM Soft Tissue Mobility Goals Four Impairment soft tissue mobility Short Term Goal (STG) Decrease soft tissue fibrosis and axillary cording by 50% ( goal achieved) STG Duration 4 wks Assisted Goal (LTG) Eliminate soft tissue fibrosis and axillary cording (goal progress) LTG Duration 8 wks Three Impairment ROM Short Term Goal (STG) Improve right shoulder ROM to WFL to facilitate lymphatic flow (goal progress) STG Duration 4 wks Sandstone Splitter Goal (LTG) Patient to be independent with ROM exercises for right UE (goal progress) LTG Duration 8 wks Two Impairment Knowledge deficit Short Term Goal (STG) Patient to be instructed in self-MLD, self-wrapping, lymphedema precautions, sequential lymphedema exercises (goal progress STG Duration 4 wks Sandstone Splitter Goal (LTG) Patient to be independent with all aspects of lymphedema self-management (goal progress ) LTG Duration 8 wks One Impairment edema Short Term Goal (STG) Decrease lymphedema to stable level with no increase or decrease more than 1 cm over the course of a week (goal achieved) STG Duration 6 wks Sandstone Splitter Goal (LTG) Patient to be fit with appropriate compression garment(s) for lymphedema management (goal progress) LTG Duration 8 wks Assessment Summary Assessment Would benefit from further PT to fully achieve above goals. Has good potential and is highly motivated. Physical Therapy Plan Frequency and Duration Frequency of Treatment 2x/Week Duration of Treatment 8 wks Plan of Care Start Date 01/19/18 Plan of Care End Date 03/21/18 Therapeutic Interventions Therapeutic Interventions Home Exercise Program Lymphedema Management Manual Therapy Self-Care/Home Management Next Visit Focus/Plan Next Note Type Treatment Note Next Visit Plan Continue lymphedema management , assess fit of compression garment when received.
--- NOTE | 2018-01-22 16:24 | PT.OPPOC ---
Current Diagnoses Malignant neoplasm of unspecified site of unspecified female breast (01/19/18) Lymphedema, not elsewhere classified (01/19/18) Provider Visit Care Team Role Provider Type Lina Aponte MD Primary Care Provider Non-Staff Specialty: Internal Medicine Address: [address] [place] [address], [place], [address] Email: Jeanna Steward MD Attending Provider Non-Staff Specialty: Radiation Oncology Address: [address] [place] [address], [id number] Email: Plan Of Care PT-OP-T Assessment and Plan Start: 10/20/17 08:14 Freq: Status: Active Protocol: Document 01/19/18 11:14 KEYONNA (Rec: 01/22/18 16:22 SAK [id number]) Physical Therapy Assessment Rehab Potential Rehabilitation Potential Good Evaluation Complexity Number of Personal Factors/Comorbidities 1-2 Number of Body Systems Impaired 3 Clinical Presentation at Evaluation Evolving Impairments Impairments Edema ROM Soft Tissue Mobility Goals Four Impairment soft tissue mobility Short Term Goal (STG) Decrease soft tissue fibrosis and axillary cording by 50% ( goal achieved) STG Duration 4 wks Microbiology Lab Manager Goal (LTG) Eliminate soft tissue fibrosis and axillary cording (goal progress) LTG Duration 8 wks Three Impairment ROM Short Term Goal (STG) Improve right shoulder ROM to WFL to facilitate lymphatic flow (goal progress) STG Duration 4 wks Microbiology Lab Manager Goal (LTG) Patient to be independent with ROM exercises for right UE (goal progress) LTG Duration 8 wks Two Impairment Knowledge deficit Short Term Goal (STG) Patient to be instructed in self-MLD, self-wrapping, lymphedema precautions, sequential lymphedema exercises (goal progress STG Duration 4 wks Fpc Goal (LTG) Patient to be independent with all aspects of lymphedema self-management (goal progress ) LTG Duration 8 wks One Impairment edema Short Term Goal (STG) Decrease lymphedema to stable level with no increase or decrease more than 1 cm over the course of a week (goal achieved) STG Duration 6 wks Fpc Goal (LTG) Patient to be fit with appropriate compression garment(s) for lymphedema management (goal progress) LTG Duration 8 wks Assessment Summary Assessment Would benefit from further PT to fully achieve above goals. Has good potential and is highly motivated. Physical Therapy Plan Frequency and Duration Frequency of Treatment 2x/Week Duration of Treatment 8 wks Plan of Care Start Date 01/19/18 Plan of Care End Date 03/21/18 Therapeutic Interventions Therapeutic Interventions Home Exercise Program Lymphedema Management Manual Therapy Self-Care/Home Management Next Visit Focus/Plan Next Note Type Treatment Note Next Visit Plan Continue lymphedema management , assess fit of compression garment when received. Plan of Care Dates Plan of Care Start Date 01/19/18 Plan of Care End Date 03/21/18 Please Sign and Return: I have reviewed this Plan of Care and certify that the skilled therapy services above are required to meet the patient?s needs. Physician Signature Date Printed Name and Credentials Clinical Instructor Signature Printed Name and Credentials
--- NOTE | 2018-02-01 16:23 | PT.OTN ---
Current Diagnoses Lymphedema, not elsewhere classified (02/01/18) Physical Therapy Treatment Note PT-OP-A Visit Information Start: 10/20/17 08:14 Freq: Status: Active Protocol: Document 02/01/18 15:22 [facility] (Rec: 02/01/18 16:23 [facility] [id number]) Out-Patient Physical Therapy Visit Information Visit Information Visit Type Treatment Note Visit Start Time 15:22 Visit Stop Time 16:22 Total Visit Minutes 60 Visit Number 9/10 Number of PHOTOCOPY OPERATOR Visits 0 Evaluation Information Evaluation Date 10/20/17 PT-OP-B Current Condition Start: 10/20/17 08:14 Freq: Status: Active Protocol: Document 10/20/17 08:15 [facility] (Rec: 10/20/17 08:28 [facility] [id number]) Current Condition History of Current Condition Onset Date 2-3 yrs Current Complaints lymphedema right UE History of Current Condition Lumpectomy with chemo & rad 2005. 2013 right mastectomy with chemo. Reports 2-3 years ago was stung by yellowjacket on right UE, had swelling but thought it was just an allergic reaction, realizes now it was probably the start of lymphedema though swelled then went back to about normal . 2-3 months ago, doing splitting wood and doing a lot of lifting of wood thinks that may have increased the edema. No change since then. Never have worn compression sleeve. Last plane flight October 2016 . Treatment Goals Patient/Caregiver Goals Decrease learn to manage the lymphedema. Prior Functional Status Baseline Function- ADL's Independent Baseline Function- Mobility Independent Baseline Function- Gait no cane Baseline Function- Recreation/Hobbies garden, bird watching Current Functional Impairments (Reported) Functional Limitations- Other Trying to protect UE until came to PT to learn to manage it. Personal Factors Other Personal Factors That May Effect none. Therapy/Recovery PT-OP-C Subjective Start: 10/20/17 08:14 Freq: Status: Active Protocol: Document 02/01/18 15:22 [facility] (Rec: 02/01/18 16:23 [facility] [id number]) OP-PT Subjective Patient Comments Patient Comments Reports her swelling increased a few days ago with no known reason, decreased today. Hasn 't ordered sleeve yet due to health issues of partner PT-OP-F Manual Assessment Start: 10/20/17 08:14 Freq: Status: Active Protocol: Document 10/20/17 08:15 SAK (Rec: 10/24/17 11:58 SAK [id number]) Manual Assessments Soft Tissue Assessment Soft Tissue Mobility Assessment mild fibrosis right UE mainly upper forearm. 1 axillary cordining right axilla PT-OP-J Posture/Palpation/Skin Start: 10/20/17 08:14 Freq: Status: Active Protocol: Document 10/20/17 08:15 SAK (Rec: 10/24/17 11:59 SAK [id number]) Posture Evaluation Position Sitting Head/C-Spine Posture Forward Head T-Spine Posture Increased Kyphosis Shoulder Posture (L) Rounded (R) Rounded PT-OP-K Range of Motion Start: 10/20/17 08:14 Freq: Status: Active Protocol: Document 10/20/17 08:15 SAK (Rec: 10/24/17 11:58 [facility] [id number]) Shoulder Goniometric Range of Motion Shoulder Measured in Degrees Right Testing Position Sitting Flexion 107 Abduction 88 External Rotation at 45 degrees 45 Abduction Internal Rotation Behind Back (text) T8 Left Testing Position Sitting Flexion 129 Abduction 110 External Rotation at 45 degrees 60 Abduction Internal Rotation Behind Back (text) T4 Shoulder ROM Limitations Shoulder ROM Limitations Soft Tissue Tightness PT-OP-N Lymphedema Start: 10/20/17 08:14 Freq: Status: Active Protocol: Document 01/22/18 16:15 SAK (Rec: 01/22/18 16:22 [facility] [id number]) Lymphedema Measurements Upper Extremity Circumference Measurements Right Affected MCP 19.2 cm Wrist 16.6 cm 5 cm From Distal Crease 18.3 cm 10 cm From Distal Crease 21.3 cm 15 cm From Distal Crease 24.5 cm 20 cm From Distal Crease 28 cm 25 cm From Distal Crease 28.4 cm 30 cm From Distal Crease 29.1 cm 35 cm From Distal Crease 31.6 cm 40 cm From Distal Crease 32.2 cm 45 cm From Distal Crease 34 cm PT-OP-Q Treatments Start: 10/20/17 08:14 Freq: Status: Active Protocol: Document 02/01/18 15:22 SAK (Rec: 02/01/18 16:07 SAK [id number]) Manual Therapy Treatment Soft Tissue Mobilization 1 Body Location pec Mobilization Type Myofascial Release Intensity/Depth Superficial Body Position Supine Lymphedema Treatment Manual Lymphatic Drainage Location right UE Duration 35 Comments hooklying and sidelying Lymphedema Wrapping Body Location right UE Materials Artiflex and Comprilan, extra layer in elbow crease due to mild reddening/irritation Compression Garment Assessment Compression Garment Assessment Details Reviewed compression level recommended (20-30mm Hg) Patient Education Self Manual Lymphatic Drainage instruction of partner PT-OP-T Assessment and Plan Start: 10/20/17 08:14 Freq: Status: Active Protocol: Document 02/01/18 15:22 [facility] (Rec: 02/01/18 16:07 [facility] [id number]) Physical Therapy Assessment Goals Four Impairment soft tissue mobility Short Term Goal (STG) Decrease soft tissue fibrosis and axillary cording by 50% ( goal achieved) STG Duration 4 wks Freight Broker Goal (LTG) Eliminate soft tissue fibrosis and axillary cording (goal progress) LTG Duration 8 wks Three Impairment ROM Short Term Goal (STG) Improve right shoulder ROM to WFL to facilitate lymphatic flow (goal progress) STG Duration 4 wks Fdc Goal (LTG) Patient to be independent with ROM exercises for right UE (goal progress) LTG Duration 8 wks Two Impairment Knowledge deficit Short Term Goal (STG) Patient to be instructed in self-MLD, self-wrapping, lymphedema precautions, sequential lymphedema exercises (goal progress STG Duration 4 wks Fdc Goal (LTG) Patient to be independent with all aspects of lymphedema self-management (goal progress ) LTG Duration 8 wks One Impairment edema Short Term Goal (STG) Decrease lymphedema to stable level with no increase or decrease more than 1 cm over the course of a week (goal achieved) STG Duration 6 wks Fdc Goal (LTG) Patient to be fit with appropriate compression garment(s) for lymphedema management (goal progress) LTG Duration 8 wks Physical Therapy Plan Frequency and Duration Frequency of Treatment 2x/Week Duration of Treatment 8 wks Plan of Care Start Date 01/19/18 Plan of Care End Date 03/21/18 Next Visit Focus/Plan Next Note Type Treatment Note Next Visit Plan Continue lymphedema management , assess fit of compression garment when received.
--- NOTE | 2018-04-16 11:22 | PT.OPDS ---
Current Diagnoses Lymphedema, not elsewhere classified (02/01/18) Provider Visit Care Team Role Provider Type iLna Aponte MD Primary Care Provider Non-Staff Specialty: Internal Medicine Address: [address] [place] [address], [place], [address] Email: Jeanna Steward MD Attending Provider Non-Staff Specialty: Radiation Oncology Address: [address] [place] [address], [address] Email: Visit Number Visit Number 02/06 Discharge Summary PT-OP-B Current Condition Start: 10/20/17 08:14 Freq: Status: Active Protocol: Document 10/20/17 08:15 [facility] (Rec: 10/20/17 08:28 [facility]AK [id number]) Current Condition History of Current Condition Onset Date 2-3 yrs Current Complaints lymphedema right UE History of Current Condition Lumpectomy with chemo & rad 2005. 2013 right mastectomy with chemo. Reports 2-3 years ago was stung by yellowjacket on right UE, had swelling but thought it was just an allergic reaction, realizes now it was probably the start of lymphedema though swelled then went back to about normal . 2-3 months ago, doing splitting wood and doing a lot of lifting of wood thinks that may have increased the edema. No change since then. Never have worn compression sleeve. Last plane flight October 2016 . Treatment Goals Patient/Caregiver Goals Decrease learn to manage the lymphedema. Prior Functional Status Baseline Function- ADL's Independent Baseline Function- Mobility Independent Baseline Function- Gait no cane Baseline Function- Recreation/Hobbies garden, bird watching Current Functional Impairments (Reported) Functional Limitations- Other Trying to protect UE until came to PT to learn to manage it. Personal Factors Other Personal Factors That May Effect none. Therapy/Recovery PT-OP-C Subjective Start: 10/20/17 08:14 Freq: Status: Active Protocol: Document 02/01/18 15:22 [facility] (Rec: 02/01/18 16:23 [facility]AK [id number]) OP-PT Subjective Patient Comments Patient Comments Reports her swelling increased a few days ago with no known reason, decreased today. Hasn 't ordered sleeve yet due to health issues of partner PT-OP-F Manual Assessment Start: 10/20/17 08:14 Freq: Status: Active Protocol: Document 10/20/17 08:15 [facility] (Rec: 10/24/17 11:58 [facility]AK [id number]) Manual Assessments Soft Tissue Assessment Soft Tissue Mobility Assessment mild fibrosis right UE mainly upper forearm. 1 axillary cordining right axilla PT-OP-J Posture/Palpation/Skin Start: 10/20/17 08:14 Freq: Status: Active Protocol: Document 10/20/17 08:15 [facility] (Rec: 10/24/17 11:59 [facility]AK [id number]) Posture Evaluation Position Sitting Head/C-Spine Posture Forward Head T-Spine Posture Increased Kyphosis Shoulder Posture (L) Rounded (R) Rounded PT-OP-K Range of Motion Start: 10/20/17 08:14 Freq: Status: Active Protocol: Document 10/20/17 08:15 [facility] (Rec: 10/24/17 11:58 [facility]AK [id number]) Shoulder Goniometric Range of Motion Shoulder Measured in Degrees Right Testing Position Sitting Flexion 107 Abduction 88 External Rotation at 45 degrees 45 Abduction Internal Rotation Behind Back (text) T8 Left Testing Position Sitting Flexion 129 Abduction 110 External Rotation at 45 degrees 60 Abduction Internal Rotation Behind Back (text) T4 Shoulder ROM Limitations Shoulder ROM Limitations Soft Tissue Tightness PT-OP-N Lymphedema Start: 10/20/17 08:14 Freq: Status: Active Protocol: Document 01/22/18 16:15 [facility] (Rec: 01/22/18 16:22 SAK [id number]) Lymphedema Measurements Upper Extremity Circumference Measurements Right Affected MCP 19.2 cm Wrist 16.6 cm 5 cm From Distal Crease 18.3 cm 10 cm From Distal Crease 21.3 cm 15 cm From Distal Crease 24.5 cm 20 cm From Distal Crease 28 cm 25 cm From Distal Crease 28.4 cm 30 cm From Distal Crease 29.1 cm 35 cm From Distal Crease 31.6 cm 40 cm From Distal Crease 32.2 cm 45 cm From Distal Crease 34 cm PT-OP-T Assessment and Plan Start: 10/20/17 08:14 Freq: Status: Active Protocol: Document 04/16/18 11:21 [facility] (Rec: 04/16/18 11:22 SAK [id number]) Physical Therapy Plan Discharge Physical Therapy Discharge Reasons Goals Met
== END 2018-05-15 11:01 ==
LOC: PHYS 15:15
PROVIDERS: PCP Internal Medicine Medical Oncology; Visit Provider Radiology Radiation Oncology
DX: I89.0 Lymphedema, not elsewhere classified (principal)
CPT/HCPCS: 97110; 97140; 97162; 97535

== ENCOUNTER → 2018-02-08 17:06 | Outpatient (CLI) | payer MEDICARE, OTHER, SELFPAY ==
[2018-02-08 18:02] LABS: Add Manual Diff / Slide Review NO; Basophils Percent Auto 0.3 % (0-2); Eosinophils Percent Auto 1.5 % (2-4); Hematocrit 31.6 % (36-46); Hemoglobin 10.8 g/dL (12.0-16.0); Lymphocytes Percent Auto 23.3 % (25-40); Mean Corpuscular HGB Conc 34.3 % (30-36); Mean Corpuscular Hemoglobin 36.9 PG (26-34); Mean Corpuscular Volume 107.7 fL (80-100); Monocytes Percent Auto 11.7 % (3-14); Neutrophils Absolute Auto 1600 /uL (3000-5900); Neutrophils Percent Auto 63.2 % (50-75); Platelet Count 174 X10^3/uL (150-400); Red Blood Cell Count 2.93 X10^6/uL (4.0-5.2); Red Cell Distribution Width 14.8 % (11.6-14.8)
[2018-02-08 18:03] LABS: Alanine Aminotransferase 15 IU/L (9-52); Albumin Globulin Ratio 1.5 (1.0-2.8); Alkaline Phosphatase 57 U/L (38-126); Aspartate Aminotransferase 20 IU/L (14-36); BUN Creatinine Ratio 22.5 (6-22); Bilirubin Total 0.3 mg/dL (0.2-1.3); Blood Urea Nitrogen 18 mg/dL (7-17); Calcium 8.7 mg/dL (8.4-10.2); Carbon Dioxide 30 mmol/L (22-32); Chloride 107 mmol/L (98-107); Estimated Glomerular Filt Rate > 60.0 mL/min (>60); Globulin 2.6 g/dL (1.7-4.1); Glucose 97 mg/dL (80-110); HEMOLYSIS < 15 (0-50); Sodium 145 mmol/L (137-145); Total Protein 6.6 g/dL (6.3-8.2)
[2018-02-08 18:05] LABS: White Blood Cell Count 2.5 X10^3/uL (4.5-11.0)
[2018-02-08 18:32] LABS: Carcinoembryonic Antigen 5.8 ng/mL (0.1-3.0)
[2018-02-10 15:19] LABS: Cancer Antigen 27.29 233 U/mL (< 38)
== END ==
PROVIDERS: PCP Internal Medicine Medical Oncology; Visit Provider Internal Medicine Medical Oncology
DX: C50.919 Malignant neoplasm of unspecified site of unspecified female breast (principal)
CPT/HCPCS: 36415; 80053; 82378; 85025; 86300

== ENCOUNTER → 2018-03-15 14:40 | Outpatient (CLI) | payer MEDICARE, OTHER, SELFPAY ==
[2018-03-15 15:25] LABS: Add Manual Diff / Slide Review NO; Basophils Percent Auto 0.2 % (0-2); Eosinophils Percent Auto 1.6 % (2-4); Hematocrit 31.4 % (36-46); Hemoglobin 10.5 g/dL (12.0-16.0); Mean Corpuscular HGB Conc 33.3 % (30-36); Mean Corpuscular Hemoglobin 36.3 PG (26-34); Mean Corpuscular Volume 109.1 fL (80-100); Monocytes Percent Auto 13.1 % (3-14); Neutrophils Absolute Auto 2300 /uL (3000-5900); Neutrophils Percent Auto 72.1 % (50-75); Platelet Count 196 X10^3/uL (150-400); Red Blood Cell Count 2.88 X10^6/uL (4.0-5.2); Red Cell Distribution Width 13.9 % (11.6-14.8); White Blood Cell Count 3.2 X10^3/uL (4.5-11.0)
[2018-03-15 16:05] LABS: Alanine Aminotransferase 21 IU/L (9-52); Albumin Globulin Ratio 1.5 (1.0-2.8); Alkaline Phosphatase 78 U/L (38-126); Aspartate Aminotransferase 36 IU/L (14-36); BUN Creatinine Ratio 33.3 (6-22); Bilirubin Total 0.3 mg/dL (0.2-1.3); Blood Urea Nitrogen 20 mg/dL (7-17); Calcium 8.8 mg/dL (8.4-10.2); Carbon Dioxide 30 mmol/L (22-32); Chloride 104 mmol/L (98-107); Estimated Glomerular Filt Rate > 60.0 mL/min (>60); Globulin 2.6 g/dL (1.7-4.1); Glucose 104 mg/dL (80-110); HEMOLYSIS < 15 (0-50); Sodium 144 mmol/L (137-145); Total Protein 6.6 g/dL (6.3-8.2)
[2018-03-15 16:34] LABS: Carcinoembryonic Antigen 7.2 ng/mL (0.1-3.0)
[2018-03-17 15:31] LABS: Cancer Antigen 27.29 387 U/mL (< 38)
== END ==
PROVIDERS: PCP Internal Medicine Medical Oncology; Visit Provider Internal Medicine Medical Oncology
DX: C50.919 Malignant neoplasm of unspecified site of unspecified female breast (principal)
CPT/HCPCS: 36415; 80053; 82378; 85025; 86300

== ENCOUNTER → 2018-04-13 10:43 | Outpatient (CLI) | payer MEDICARE, OTHER, SELFPAY ==
[2018-04-13 11:15] LABS: Add Manual Diff / Slide Review NO; Basophils Percent Auto 0.3 % (0-2); Eosinophils Percent Auto 2.6 % (2-4); Hematocrit 31.4 % (36-46); Hemoglobin 10.7 g/dL (12.0-16.0); Lymphocytes Percent Auto 19.5 % (25-40); Mean Corpuscular HGB Conc 33.9 % (30-36); Mean Corpuscular Hemoglobin 36.7 PG (26-34); Mean Corpuscular Volume 108.2 fL (80-100); Monocytes Percent Auto 11.8 % (3-14); Neutrophils Absolute Auto 1900 /uL (3000-5900); Neutrophils Percent Auto 65.8 % (50-75); Platelet Count 201 X10^3/uL (150-400); Red Blood Cell Count 2.91 X10^6/uL (4.0-5.2); Red Cell Distribution Width 14.2 % (11.6-14.8); White Blood Cell Count 2.9 X10^3/uL (4.5-11.0)
== END ==
PROVIDERS: PCP Internal Medicine Medical Oncology; Visit Provider Internal Medicine Medical Oncology
DX: C50.911 Malignant neoplasm of unspecified site of right female breast (principal); C79.51 Secondary malignant neoplasm of bone; Z17.0 Estrogen receptor positive status [ER+]
CPT/HCPCS: 36415; 85025

== ENCOUNTER → 2018-06-08 14:23 | Outpatient (CLI) | payer MEDICARE, OTHER, SELFPAY ==
[2018-06-08 15:32] LABS: Add Manual Diff / Slide Review NO; Basophils Percent Auto 0.3 % (0-2); Eosinophils Percent Auto 1.2 % (2-4); Hematocrit 31.9 % (36-46); Hemoglobin 10.8 g/dL (12.0-16.0); Lymphocytes Percent Auto 23.2 % (25-40); Mean Corpuscular HGB Conc 33.9 % (30-36); Mean Corpuscular Hemoglobin 36.3 PG (26-34); Mean Corpuscular Volume 107.1 fL (80-100); Monocytes Percent Auto 11.1 % (3-14); Neutrophils Absolute Auto 1300 /uL (1500-7000); Neutrophils Percent Auto 64.2 % (50-75); Platelet Count 166 X10^3/uL (150-400); Red Blood Cell Count 2.98 X10^6/uL (4.0-5.2); Red Cell Distribution Width 14.3 % (11.6-14.8); White Blood Cell Count 2.1 X10^3/uL (4.5-11.0)
== END ==
PROVIDERS: PCP Internal Medicine Medical Oncology; Visit Provider Internal Medicine Medical Oncology
DX: C50.919 Malignant neoplasm of unspecified site of unspecified female breast (principal)
CPT/HCPCS: 36415; 85025

== ENCOUNTER → 2018-10-18 16:26 | Outpatient (CLI) | payer MEDICARE, OTHER, SELFPAY ==
[2018-10-18 17:27] LABS: Add Manual Diff / Slide Review NO; Basophils Absolute Auto 0 /uL (0-100); Basophils Percent Auto 0.8 % (0-2); Eosinophils Absolute Auto 200 /uL (0-450); Eosinophils Percent Auto 3.2 % (2-4); Hematocrit 36.1 % (36-46); Lymphocytes Absolute Auto 500 /uL (1100-4500); Lymphocytes Percent Auto 8.7 % (25-40); Mean Corpuscular HGB Conc 33.2 % (30-36); Mean Corpuscular Hemoglobin 35.2 PG (26-34); Mean Corpuscular Volume 105.9 fL (80-100); Monocytes Absolute Auto 600 /uL (0-900); Monocytes Percent Auto 11.6 % (3-14); Neutrophils Absolute Auto 4100 /uL (1500-7000); Neutrophils Percent Auto 75.7 % (50-75); Platelet Count 329 X10^3/uL (150-400); Red Blood Cell Count 3.41 X10^6/uL (4.0-5.2); Red Cell Distribution Width 14.8 % (11.6-14.8); White Blood Cell Count 5.4 X10^3/uL (4.5-11.0)
[2018-10-18 17:57] LABS: Alanine Aminotransferase 28 IU/L (9-52); Albumin 4.3 g/dL (3.5-5.0); Albumin Globulin Ratio 1.4 (1.0-2.8); Alkaline Phosphatase 104 U/L (38-126); Aspartate Aminotransferase 67 IU/L (14-36); Bilirubin Total 0.4 mg/dL (0.2-1.3); Blood Urea Nitrogen 13 mg/dL (7-17); Calcium 8.9 mg/dL (8.4-10.2); Carbon Dioxide 25 mmol/L (22-32); Chloride 103 mmol/L (98-107); Estimated Glomerular Filt Rate > 60.0 mL/min (>60); Globulin 3.1 g/dL (1.7-4.1); Glucose 103 mg/dL (80-110); HEMOLYSIS < 15 (0-50); Sodium 139 mmol/L (137-145); Total Protein 7.4 g/dL (6.3-8.2)
[2018-10-18 18:28] LABS: Carcinoembryonic Antigen 18.3 ng/mL (0.1-3.0)
[2018-10-21 09:01] LABS: Cancer Antigen 27.29 743 U/mL (< 38)
== END ==
PROVIDERS: PCP Internal Medicine Medical Oncology
DX: C50.919 Malignant neoplasm of unspecified site of unspecified female breast (principal)
CPT/HCPCS: 36415; 80053; 82378; 85025; 86300

== ENCOUNTER 2018-10-25 14:19 | Emergency (ER) | payer MEDICARE, OTHER, SELFPAY ==
[2018-10-25 14:31] VITALS: BP 138/76; PULSE 109; RESP 16; TEMP 36.1; O2SAT 96
== END 2018-10-25 18:10 | disposition left against medical advice (07) ==
PROVIDERS: Emergency Provider Emergency Medicine; PCP Internal Medicine Medical Oncology
DX: Z53.21 Procedure and treatment not carried out due to patient leaving prior to being seen by health care provider (principal)
CPT/HCPCS: 99281